=== PATIENT | female | born 1995 | race Caucasian/White ===

== ENCOUNTER 2019-01-18 11:22 | Emergency (ER) | payer OTHER ==
[~2019-01-18] VITALS: Ht 177.8 cm; Wt 56.2 kg
[2019-01-18] MEDS ORDERED: AMBIEN5 MG PO (12:01)
[2019-01-18] MEDS ORDERED: ALPRAZOLAM0.5 MG PO (12:01)
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
== END 2019-01-18 16:40 | disposition home or self-care (01) ==
LOC: ED 11:22
DX: T74.21XA Adult sexual abuse, confirmed, initial encounter (principal); T19.2XXA Foreign body in vulva and vagina, initial encounter; R07.9 Chest pain, unspecified; R10.2 Pelvic and perineal pain; F17.200 Nicotine dependence, unspecified, uncomplicated; F41.9 Anxiety disorder, unspecified; Z79.899 Other long term (current) drug therapy
CPT/HCPCS: 36415; 71101; 80053; 84703; 85025; 86703; 86706; 86707; 96372; 99285-25; J0696

== ENCOUNTER 2025-03-24 16:46 | Emergency (ER) | payer OTHER ==
[~2025-03-24] VITALS: Ht 177.8 cm; Wt 89.0 kg
[~2025-03-24 16:46] MED LIST: ALPRAZOLAM0.5 MG PO; AMBIEN5 MG PO
[2025-03-24 17:05] LABS: BASOPHILS 0.4 % (0.1-1.2); EOSINOPHILS 2.1 % (0.7-5.8); LYMPHOCYTES 36.3 % (19.3-51.7); MCH 26.6 PG (25.6-32.2); MCHC 32.2 g/dL (32.2-35.5); MCV 82.4 fL (79.4-94.8); MONOCYTES 10.2 % (4.7-12.5); NEUTROPHILS 50.9 % (34.0-71.1); RBC 4.03 M/uL (3.93-5.22)
[2025-03-24 17:20] LABS: ALCOHOL, MEDICAL <3 ng/dL (<3); ALT (SGPT) 18 U/L (14-59); AST (SGOT) 8 U/L (15-37); GLOMERULAR FILTRATION RATE,EST 78 mL/min (>60); PROTEIN, TOTAL 6.7 g/dL (6.4-8.2); UREA NITROGEN 19 mg/dL (7-18)
[2025-03-24 17:37] LABS: AMPHETAMINES, URINE NEGATIVE (NEGATIVE); BARBITURATES, URINE NEGATIVE (NEGATIVE); BENZODIAZEPINE, URINE NEGATIVE (NEGATIVE); CANNABINOID, URINE POSITIVE (NEGATIVE); COCAINE, URINE NEGATIVE (NEGATIVE); ECSTASY, URINE NEGATIVE (NEGATIVE); FENTANYL, URINE NEGATIVE (NEGATIVE); METHADONE, URINE NEGATIVE (NEGATIVE); OPIATES, URINE NEGATIVE (NEGATIVE); OXYCODONE, URINE NEGATIVE (NEGATIVE); PHENCYCLIDINE, URINE NEGATIVE (NEGATIVE)
[2025-03-24] MEDS ORDERED: KETOROLAC TROMETHAMINE 15 MG/ML VIAL IV ONE (18:15)
[2025-03-24 20:56] VITALS: BP 140/85
--- NOTE | 2025-03-25 06:06 | EKG ---
[facility] [address] [place], [place] [address] Signed Normal sinus rhythm Normal ECG No previous ECGs available Confirmed by RAYMOND RAMIREZ MD ([id number]) on 03/25/2025 6:06:01 AM Electronically Signed By: RAYMOND RAMIREZ 03/25/25 0606 PATIENT NAME: MIMary Grace [facility] Electrocardiogram DATE OF : [birth year] PHYSICIAN: RAYMOND RAMIREZ REPORT #: [id number] REPORT IS CONFIDENTIAL AND NOT TO BE RELEASED WITHOUT AUTHORIZATION
== END 2025-03-24 20:30 | disposition home or self-care (01) ==
LOC: ED 16:46
PROVIDERS: Emergency Medicine
DX: R41.82 Altered mental status, unspecified (principal); T40.715A Adverse effect of cannabis, initial encounter; F43.10 Post-traumatic stress disorder, unspecified; F17.200 Nicotine dependence, unspecified, uncomplicated
CPT/HCPCS: 36415; 70450; 80053; 80307; 84703; 85025; 93005; 93010; 96374; 99285-25; G0480; J1885